=== PATIENT | male | born 1960 | race Caucasian/White ===

== ENCOUNTER 2020-02-05 20:18 | Inpatient (IN) | payer MEDICAID, OTHER ==
[~2020-02-05] VITALS: Ht 185.4 cm; Wt 86.6 kg
[~2020-02-05 20:18] MED LIST: ALPR0.5T7 PO; DIAZ5TAB PO; HYDROCHLOROTH12.5 MG PO; LOSA25TA25 PO
--- NOTE | 2020-02-05 20:25 | NUR ---
CODE NEURO CALLED AT 2007 NEUROLOGY PAGED AT 2020
[2020-02-05] MEDS ORDERED: LABETALOL 5MG/ML, 20ML IVPush ONE (20:30)
[2020-02-05 20:33] LABS: BASOPHILS # (AUTO) 0.04 x10^3/uL (0-0.1); BASOPHILS % (AUTO) 1 % (0-1); EOSINOPHILS # (AUTO) 0.19 x10^3/uL (0-0.4); EOSINOPHILS % (AUTO) 3 % (1-7); LYMPHOCYTES # (AUTO) 2.64 x10^3/uL (1-3.4); LYMPHOCYTES % (AUTO) 36 % (22-44); MD NO; MEAN CORPUSCULAR HEMOGLOBIN 30.5 pg (27.5-34.5); MEAN CORPUSCULAR HGB CONC 33.7 g/dL (33.2-36.2); MEAN CORPUSCULAR VOLUME 90.4 fL (81-97); MEAN PLATELET VOLUME 7.8 fL (7.4-10.4); MONOCYTES # (AUTO) 0.61 x10^3/uL (0.2-0.8); MONOCYTES % (AUTO) 8 % (2-9); NEUTROPHILS # (AUTO) 3.84 x10^3/uL (1.8-6.8); NEUTROPHILS % (AUTO) 52 % (42-75); PLATELET COUNT 213 x10^3/uL (130-400); RED BLOOD COUNT 4.84 x10^6/uL (4.38-5.82); RED CELL DISTRIBUTION WIDTH 14.6 % (9.4-14.8)
--- NOTE | 2020-02-05 20:33 | NUR ---
BOT [id number] PLACED IN ROOM
--- NOTE | 2020-02-05 20:34 | NUR ---
NEURO PAGE RETURNED AT 2030
--- NOTE | 2020-02-05 20:40 | NUR ---
PT ARRIVED IN ER WITH LEFT SIDE FACIAL DROOP, LEFT ARM MINIMAL EFFORT AGAINST GRAVITY, LEFT LEG NO EFFORT AGAINST GRAVITY WITH NUMBNESS IN LEFT SIDE. LAST KNOWN WELL WAS 1944, SYMPTOMS RESOLVED DURING TRANSPORT AND RESUMED UPON ARRIVAL. SX RESOLVED AGAIN IN TRAUMA ROOM, AND RESUMED APPROX 2 MIN LATER.
[2020-02-05 20:46] LABS: INTERNATIONAL NORMALIZED RATIO 1.01 (0.93-1.1); PROTHROMBIN TIME 10.4 Seconds (9.6-11.5)
[2020-02-05] MEDS ORDERED: ALTEPLASE 9 MG in SYRINGE 1 EA IVPush ONE (21:00)
[2020-02-05] MEDS ORDERED: ALTEPLASE IV ONE (21:00)
--- NOTE | 2020-02-05 21:00 | NUR ---
MEDICATIONS VERIFIED WITH NAILA TAYLOR AND ADMINISTERED PER PROTOCOL. MEDICATION EXPLAINED TO PT AND THE IMPORTANCE TO PLEASE BE CAUTIOUS PT FLAILING AROUND ON BED
[2020-02-05] MEDS ORDERED: LABETALOL 5MG/ML, 20ML ONE (21:14)
[2020-02-05] MEDS ORDERED: OMNIPAQUE 350 MG/ML, 100ML BOTTLE ONE (21:16)
--- NOTE | 2020-02-05 21:21 | NUR ---
FAMILY CONTACTED PER PT REQUEST.
--- NOTE | 2020-02-05 21:21 | NUR ---
SISTER MICHELLE #: [phone] SON BATSHEVA #: [phone]
--- NOTE | 2020-02-05 21:55 | NUR ---
TPA INFUSION COMPLETE AT THIS TIME. PT SX RESOLVED CURRENTLY.
--- NOTE | 2020-02-05 22:07 | NUR ---
VERBAL ORDER FROM MD HENRRY TO GIVEN ADDITIONAL 10 MG LABETALOL.
[2020-02-05] MEDS ORDERED: LABETALOL 5MG/ML, 20ML IVPush STA (22:59)
--- NOTE | 2020-02-05 23:05 | NUR ---
PT GIVEN ADDITIONAL 10 MG LABETALOL PER DO TREVOR
[2020-02-05] MEDS ORDERED: LIDODERM 5% PATCH TD PRN (23:30)
[2020-02-05] MEDS ORDERED: GABAPENTIN 300 MG CAPSULE PO PRN (23:30)
[2020-02-05] MEDS ORDERED: morphine SULFATE 10 MG/ML, 1ML IVPush PRN (23:30)
[2020-02-05] MEDS ORDERED: ONDANSETRON 2MG/ML, 2ML IVPush PRN (23:30)
[2020-02-05 23:36] LABS: HCT (SEDRATE) 43.8 % (39.2-51.8)
[2020-02-05] MEDS ORDERED: PLEASE ENTER HEIGHT AND WEIGHT MC SCH (23:45)
[2020-02-06 00:17] VITALS: BP 171/106
[2020-02-06] MEDS: NICOTINE 14MG/24 HR PATCH.TD24 TD SCH ×2 (01:03→12:56)
[2020-02-06] MEDS: ATORVASTATIN 80 MG TABLET PO SCH ×3 (01:03→20:29)
[2020-02-06 01:28] VITALS: BP 181/84
[2020-02-06] MEDS: ACETAMINOPHEN 325 MG TABLET PO PRN ×3 (02:55→19:04)
[2020-02-06] MEDS ORDERED: ALTEPLASE 1 MG/ML, 100ML ONE (02:55)
[2020-02-06 04:00] VITALS: BP 124/73
[2020-02-06 04:22] LABS: BASOPHILS # (AUTO) 0.04 x10^3/uL (0-0.1); BASOPHILS % (AUTO) 1 % (0-1); EOSINOPHILS # (AUTO) 0.18 x10^3/uL (0-0.4); EOSINOPHILS % (AUTO) 2 % (1-7); LYMPHOCYTES # (AUTO) 2.06 x10^3/uL (1-3.4); LYMPHOCYTES % (AUTO) 25 % (22-44); MD NO; MEAN CORPUSCULAR HEMOGLOBIN 30.3 pg (27.5-34.5); MEAN CORPUSCULAR HGB CONC 33.3 g/dL (33.2-36.2); MEAN CORPUSCULAR VOLUME 90.9 fL (81-97); MEAN PLATELET VOLUME 7.9 fL (7.4-10.4); MONOCYTES # (AUTO) 0.65 x10^3/uL (0.2-0.8); MONOCYTES % (AUTO) 8 % (2-9); NEUTROPHILS # (AUTO) 5.39 x10^3/uL (1.8-6.8); NEUTROPHILS % (AUTO) 65 % (42-75); PLATELET COUNT 186 x10^3/uL (130-400); RED CELL DISTRIBUTION WIDTH 15.1 % (9.4-14.8)
[2020-02-06 04:35] LABS: ALANINE AMINOTRANSFERASE 76 U/L (12-78); ALBUMIN 3.2 g/dL (3.4-5.0); ANION GAP 6 mmol/L (5-15); BILIRUBIN, DIRECT 0.1 mg/dL (0.1-0.2); CALCIUM 8.5 mg/dL (8.5-10.1); CHLORIDE 112 mmol/L (98-107); CHOLESTEROL, TOTAL 210 mg/dL (140-239); CREATININE 1.12 mg/dL (0.7-1.3); TRIGLYCERIDES 136 mg/dL (50-200); VLDL CHOLESTEROL 27 mg/dL (0-25)
[2020-02-06 04:37] LABS: ALKALINE PHOSPHATASE 88 U/L (45-117); BILIRUBIN,TOTAL 0.4 mg/dL (0.2-1.0); CHOL/HDL RATIO 6.2; HDL CHOL % 16 % (26-37); HDL CHOLESTEROL (DIRECT) 34 mg/dL (40-60); LDL CHOLESTEROL,CALCULATED 149 mg/dL (54-169); LDL/HDL RATIO 4.4 (0.5-3.0); TOTAL PROTEIN 8.3 g/dL (6.4-8.2)
[2020-02-06] MEDS ORDERED: GADOTERATE 10 MMOL/20 ML SYR ONE (12:07)
[2020-02-06] MEDS: LABETALOL 5MG/ML, 20ML IV PRN (12:53)
[2020-02-06] MEDS ORDERED: LIDODERM REMOVE PATCH NOTE XX PRN (13:00)
[2020-02-06 14:44] LABS: AMPHETAMINE SCREEN, URINE Positive (Negative); BARBITURATE SCREEN, URINE Negative (Negative); BENZODIAZEPINE SCREEN, URINE Negative (Negative); CANNABINOID SCREEN, URINE Positive (Negative); COCAINE SCREEN, URINE Negative (Negative); METHADONE SCREEN, URINE Negative (Negative); OPIATE SCREEN, URINE Negative (Negative)
--- NOTE | 2020-02-06 15:01 | NUR ---
SOFT TEXTURE WITH THIN LIQUIDS, EDITOR SOUND PLACED SWALLOW PRECAUTION SIGN AT HOB Addendum: 02/06/20 at 1502 by Hiral BAKER Amended: Links added.
[2020-02-07 02:00] VITALS: BP 156/106
[2020-02-07] MEDS: ACETAMINOPHEN 325 MG TABLET PO PRN ×3 (04:58→22:34)
[2020-02-07] MEDS: LABETALOL 5MG/ML, 20ML IV PRN (05:00)
[2020-02-07] MEDS ORDERED: hydrALAzine 20 MG/ML, 1ML ONE (06:10)
[2020-02-07] MEDS ORDERED: AMLODIPINE 5 MG TABLET ONE (06:12)
[2020-02-07] MEDS ORDERED: hydrALAzine 20 MG/ML, 1ML IV PRN (06:30)
[2020-02-07] MEDS: AMLODIPINE 5 MG TABLET PO SCH ×2 (07:26→21:47)
[2020-02-07 07:43] VITALS: BP 142/92
[2020-02-07 09:40] VITALS: BP 138/83
[2020-02-07] MEDS: LORazepam 2 MG/ML, 1ML IVPush PRN ×2 (12:13→18:17)
[2020-02-07 13:56] VITALS: BP 156/92
[2020-02-07 16:52] VITALS: BP 153/109
[2020-02-07 18:49] VITALS: BP 167/91
[2020-02-07] MEDS: ATORVASTATIN 80 MG TABLET PO SCH (21:47)
[2020-02-07] MEDS ORDERED: LORazepam 2 MG/ML, 1ML IVPush PRN (23:00)
[2020-02-08 01:46] VITALS: BP 158/87
[2020-02-08] MEDS: ACETAMINOPHEN 325 MG TABLET PO PRN ×2 (06:08→11:25)
[2020-02-08] MEDS: NICOTINE 14MG/24 HR PATCH.TD24 TD SCH (06:09)
[2020-02-08] MEDS ORDERED: METOPROLOL TARTRATE 25 MG TAB PO SCH (08:00)
[2020-02-08 08:05] VITALS: BP 146/90
[2020-02-08] MEDS: AMLODIPINE 5 MG TABLET PO SCH (08:30)
[2020-02-08] MEDS ORDERED: HYDR-3343 PO (10:11)
[2020-02-08] MEDS ORDERED: ATOR-2 PO (10:11)
[2020-02-08] MEDS ORDERED: METO50TA4 PO (10:11)
[2020-02-08] MEDS ORDERED: AMLO10TA8 PO (10:11)
== END 2020-02-08 11:50 | disposition home or self-care (01) | DRG 45 ==
LOC: ED 21:36 → EDIP 21:51 → CCU 23:34 → 4EST 02-07 09:16 → DCLOUNGE 02-08 11:28
PROVIDERS: ADMIT Family Medicine; ATTEND Internal Medicine
DX: I63.511 Cerebral infarction due to unspecified occlusion or stenosis of right middle cerebral artery (principal); E78.5 Hyperlipidemia, unspecified; F12.90 Cannabis use, unspecified, uncomplicated; F15.10 Other stimulant abuse, uncomplicated; F17.200 Nicotine dependence, unspecified, uncomplicated; G81.94 Hemiplegia, unspecified affecting left nondominant side; G89.29 Other chronic pain; G93.6 Cerebral edema; I10 Essential (primary) hypertension; I16.0 Hypertensive urgency; I45.10 Unspecified right bundle-branch block; I48.91 Unspecified atrial fibrillation; I61.1 Nontraumatic intracerebral hemorrhage in hemisphere, cortical; I63.81 Other cerebral infarction due to occlusion or stenosis of small artery; I65.23 Occlusion and stenosis of bilateral carotid arteries; J32.0 Chronic maxillary sinusitis; K75.9 Inflammatory liver disease, unspecified; M47.812 Spondylosis without myelopathy or radiculopathy, cervical region; R29.700 NIHSS score 0; Z59.0 Homelessness; Z79.899 Other long term (current) drug therapy; Z80.0 Family history of malignant neoplasm of digestive organs; Z83.3 Family history of diabetes mellitus; Z86.73 Personal history of transient ischemic attack (TIA), and cerebral infarction without residual deficits; Z91.14 Patient's other noncompliance with medication regimen; Z91.19 Patient's noncompliance with other medical treatment and regimen; F19.10 Other psychoactive substance abuse, uncomplicated
CPT/HCPCS: 36415; 70450; 70496; 70498; 70551; 70552; 80047; 80053; 80061; 80074; 80307; 82248; 83036; 84443; 85025; 85610; 85651; 85730; 87081; 87521; 93005; 93306; 96365; 96375; 99291; G0378; J2997; Q9967; A9575; J0360; J2060

== ENCOUNTER → 2020-03-09 | Outpatient (CLI) | payer MEDICAID ==
[~2020-03-09] MED LIST changes: +AMLO10TA8 PO; +ATOR-2 PO; +HYDR-3343 PO; +METO50TA4 PO
== END | disposition home or self-care (01) ==
LOC: CFH 14:34
PROVIDERS: ATTEND Nurse Practitioner Family
DX: I63.9 Cerebral infarction, unspecified (principal); J34.89 Other specified disorders of nose and nasal sinuses
CPT/HCPCS: 70450